=== PATIENT | female | born 1980 | race Caucasian/White ===

== ENCOUNTER → 2020-01-20 | Outpatient (CLI) | payer BC | LOC: LAB FS 13:34 | PROVIDERS: ATTEND Family Medicine | DX: Z20.828 Contact with and (suspected) exposure to other viral communicable diseases (principal) | CPT/HCPCS: 87635 ==

== ENCOUNTER → 2020-04-25 | Outpatient (CLI) | payer BC ==
--- NOTE | 2020-04-25 12:20 | Diagnostic Imaging Report ---
Left tibia-fibula 10:55. Indication: Pain AP and lateral views were obtained. There are no prior studies available for comparison. There is no fracture, dislocation or acute bony abnormality evident. The knee and ankle joint seem fairly well-maintained. There may be mild soft tissue edema about the ankle joint however. The soft tissues are otherwise unremarkable. Impression: 1. There is no evidence for an acute bony abnormality. 2. There seems to be mild soft tissue edema about the ankle joint. Dictated by: Dictated on workstation # [id number]
== END ==
LOC: RAD FS 10:08
PROVIDERS: ATTEND Nurse Practitioner
DX: M79.662 Pain in left lower leg (principal)
CPT/HCPCS: 73590